=== PATIENT | male | born 1960 | race Caucasian/White ===

== ENCOUNTER → 2017-02-16 | Outpatient (CLI) | payer BC ==
[~2017-02-16] MED LIST: HYDR12.55 PO; LOSA50TA6 PO
--- NOTE | 2017-02-16 08:40 | DIAGNOSTIC IMAGING REPORT ---
KUB CLINICAL HISTORY: Nephrolithiasis. FINDINGS: 2 AP supine abdominal radiographs are compared to study dated 04/09/2016. There is a nonobstructed abdominal bowel gas pattern. A 5 mm nonobstructing calculus projects over the left kidney. No right renal calculi are clearly visualized. There is no radiographic evidence of ureteral calculus. Small metallic foreign bodies are again seen projecting over the right mid abdomen. Pelvic phleboliths are observed. The bony structures appear intact. IMPRESSION: 1. Nonobstructing left renal calculus. 2. No right renal calculi are identified. 3. Metallic foreign bodies projecting over the right mid abdomen are similar to previous. Electronically signed by: Bethel Cortes M.D. 02/16/2017 8:39 AM Dictated Date/Time: 02/16/2017 8:38 AM
== END | disposition home or self-care (01) ==
LOC: C.RAD 08:11
PROVIDERS: ATTEND Nurse Practitioner Family
DX: N20.0 Calculus of kidney (principal)

== ENCOUNTER 2019-03-30 15:07 | Observation (INO) ==
[2019-03-30] MEDS ORDERED: SODIUM CHLORIDE 0.9% 1000ML 1,000 ML IV ONE (15:26)
[2019-03-30] MEDS ORDERED: ONDANSETRON INJ 2 MG/ML 2 ML VIAL IV STA (15:26)
[2019-03-30] MEDS ORDERED: ACETAMINOPHEN 1,000 MG/100 ML VIAL IV STA (15:28)
[2019-03-30] MEDS ORDERED: PROMETHAZINE HCL 6.25 MG in SODIUM CHLORIDE 0.9% 50 ML IV STA (15:29)
[2019-03-30] MEDS: MoRPHine SULFATE 10 MG/ML CARP/VIAL IV PRN ×2 (15:38→16:15)
[2019-03-30 15:44] LABS: Hematocrit (blood only) 40.1 % (42-52); Hemoglobin 13.9 g/dL (14.0-18.0); Mean Corpuscular Hgb Conc 34.7 g/dL (32-36); Mean Corpuscular Volume 89.9 fL (80-100); Mean Platelet Volume 9.1 fL (7.4-10.4); Platelet Count 238 K/uL (130-400); RDW Standard Deviation 42.9 fL (36.4-46.3); Red Blood Count 4.46 M/uL (4.7-6.1); White Blood Count 15.97 K/uL (4.8-10.8)
[2019-03-30 16:02] LABS: Calcium 8.3 mg/dl (8.5-10.1); Creatinine Clr Calc Pharmacy 72.5 ml/min; Est GFR (African American) 76.5; Potassium 3.8 mmol/L (3.5-5.1)
[2019-03-30] MEDS ORDERED: PROMETHAZINE 6.25 MG/50.25 ML NSS IV ONE (16:06)
--- NOTE | 2019-03-30 16:26 | CT Scan Report ---
ABDOMEN AND PELVIS CT WITHOUT CONTRAST CT DOSE: 966.95 mGycm HISTORY: left flank pain, lithotrip today TECHNIQUE: Multiaxial CT images of the abdomen and pelvis were performed without contrast. A dose lo wering technique was utilized adhering to the principles of ALARA. COMPARISON STUDY: None. FINDINGS: A 5 mm subpleural nodule within the right middle lobe on image 5. Linear density within the lung bases consistent with subsegmental atelectasis. No pneumoperitoneum. No pneumatosis. Trace left pleural effusion. A few scattered hypodense lesions within the liver with the largest in the right h epatic lobe measuring 1.2 cm. These are incompletely characterized on this noncontrast study but favo r cysts. The unenhanced spleen, adrenal glands, pancreas, and gallbladder are unremarkable. There is a punctate stone within the lower pole the right kidney. No right-sided hydronephrosis. No retroperit davis lymphadenopathy. Normal caliber abdominal aorta. Moderate to large left renal subcapsular hemat sushila. This extends into the perinephric/retroperitoneal space to the level of the external iliac vesse ls. The subcapsular component measures a maximal thickness of 4 cm and results in mass effect along t he left kidney. There are a few stones within the left kidney. There are left peripelvic renal cysts. No left-sided hydronephrosis. The bladder is unremarkable. Suboptimal evaluation for bowel pathology due to the lack of intravenous and oral contrast. However, there is no definite bowel wall thickenin g or obstruction. Colonic diverticulosis. There is a metallic clip adjacent to the tip of the appendi x. The visualized appendix appears to be normal in caliber. IMPRESSION: 1. Moderate to large left renal subcapsular hematoma. This extends into the perinephric/retroperitone al space to the level of the external iliac vessels. The subcapsular component measures a maximal thi ckness of 4 cm and results in mass effect along the left kidney. Therefore, this could represent a pa ge kidney. 2. Bilateral nephrolithiasis. No hydronephrosis. 3. Trace left pleural effusion. 4. Colonic diverticulosis. 5. A 5 mm subpleural nodule within the right middle lobe. Please refer to below summary of Fleischner criteria recommendations for follow-up of incidental CT n ana Wilkins, Guidelines for management of small pulmonary nodules detected on CT scans: A sta tement from the Fleischner Society, Radiology 237: [phone].) SOLID NODULES Solitary nodule size: <6 mm * Low risk patients: no follow-up needed * high risk patients: optional CT at 12 months Solitary nodule size: 6-8 mm * Low risk patients: follow-up at 6-12 months, then consider further follow-up at 18-24 months * high risk patients: initial follow-up CT at 6-12 months and then at 18-24 months if no change Solitary nodule size: >8 mm * either low or high risk patients - consider follow-up CT at 3 months, and/or CT-PET, and/or biopsy Multiple nodules size: <6 mm * Low risk patients: no routine follow-up * high risk patients: optional CT at 12 months Multiple nodules size: 6-8 mm * Low risk patients: follow-up at 3-6 months, then consider further follow-up at 18-24 months * high risk patients: follow-up at 3-6 months, then at 18-24 months if no change Multiple nodules size: >8 mm * Low risk patients: follow-up at 3-6 months, then consider further follow-up at 18-24 months * high risk patients: follow-up at 3-6 months, then at 18-24 months if no change Note: newly detected indeterminate nodule in persons 35 years of age or older. * Low risk patients: minimal or absent history of smoking and/or other known risk factors * high risk patients: history of smoking or of other known risk factors (e.g. first degree relative with lung cancer, or exposure to asbestos, radon, uranium) * if a nodule up to 8 mm is partly solid or is ground glass further follow-up is required after 24 m onths to exclude possible slow growing adenocarcinoma (UNIQUE) SUBSOLID NODULES Solitary pure ground-glass nodule * nodule size <6 mm - no CT follow-up required * nodule size >=6 mm - follow-up CT at 6-12 months, then every 2 years until 5 years Solitary part-solid nodule * nodule size <6 mm - no CT follow-up required * nodule size >=6 mm - follow-up CT at 3-6 months. If unchanged, and solid component remains <6 mm, then annual follow-up for 5 years Multiple subsolid nodules * nodule size <6 mm - follow-up CT at 3-6 months, consider further follow-up at 2 and 4 years if sta ble * nodule size >=6 mm - follow-up CT at 3-6 months, subsequent management based on the most suspiciou s nodule(s) Electronically signed by: Philip Howard M.D. 03/30/2019 4:25 PM
--- NOTE | 2019-03-30 16:32 | XRay Report ---
XR chest 1V portable HISTORY: 58 years-old Male sob acute shortness of breath COMPARISON: CT abdomen and pelvis of same day, chest radiograph 03/19/2019 TECHNIQUE: Portable AP view of the chest FINDINGS: Previously described ill-defined opacity of the right lateral right lung base is not clearly seen on today's study. Cardiomediastinal and hilar silhouettes are unchanged. Mild interstitial coarsening. N o pneumothorax, pleural effusion or overt pulmonary bones of the chest appear grossly intact. IMPRESSION: No acute process. The above report was generated using voice recognition software. It may contain grammatical, syntax o r spelling errors. Electronically signed by: Beto Kauffman M.D. 03/30/2019 4:31 PM
--- NOTE | 2019-03-30 17:27 | History & Physical Report ---
Date of Service March 30, 2019 Assessment & Plan (1) Kidney stones: Patient underwent lithotripsy today, developed intense left flank pain CT scan in the emergency department with a left subcapsular hematoma with extension to the peritoneal space. Conservative management per urology's recommendations and sent intravenous fluids parenteral opiate medication antiemetics and serial hemoglobins. (2) Hypertension: Patient is elevated blood pressure associated with pain currently he typically takes losartan hydrochlorothiazide will continue with losartan adding hydralazine intravenous as needed for pain control (3) Lung nodule: Patient is a lung nodule seen on a CT scan of the abdomen pelvis, lung nodule program is activated (4) Seasonal allergies: Typically takes seasonal Singulair which he is on currently (5) DVT prophylaxis: SCDs for DVT prevention as chemoprophylaxis is evident History of Present Illness Primary Care Provider: Jesse Galeas DO Pain patient went to lithotripsy for recurrent nephrolithiasis. He developed intense left flank pain presented to the ED where he had a left renal subcapsular hematoma with retroperitoneal bleeding. On-call urology was consulted and recommended conservative management. Patient will have pain control IV fluids antiemetics and evaluation by urology with serial hemoglobins checked. Allergies Allergy/AdvReac Type Severity Reaction Status Date / Time methylprednisolone Allergy Severe HIVES, Verified 03/30/19 06:40 DIFFICULTY BREATHING Iodinated Contrast- Oral and Allergy Intermediate HIVES Verified 03/30/19 06:40 IV Dye tetanus toxoid, adsorbed Allergy Intermediate HIVES Verified 03/30/19 06:40 SEGUNDO Inhibitors Allergy Hives Verified 03/30/19 06:40 Gadolinium-Containing Allergy Hives Verified 03/30/19 06:40 Contrast Medi grass pollen Allergy Verified 03/30/19 06:40 Home Medications Home Medications Medication Instructions Recorded Confirmed Type montelukast 10 mg tablet 10 mg PO QPM #90 tab 02/12/19 03/30/19 Rx azelastine 137 mcg (0.1 %) nasal 2 sprays INTNAS BID #30 ml 03/16/19 03/30/19 Rx spray aerosol hydrochlorothiazide 12.5 mg tablet 12.5 mg PO QAM #90 tab 03/16/19 03/30/19 Rx losartan 100 mg tablet 100 mg PO QAM #90 tab 03/16/19 03/30/19 Rx meloxicam 15 mg tablet 15 mg PO DAILY PRN #90 tab 03/16/19 03/30/19 Rx hydrocodone-acetaminophen 1 tab PO Q6H PRN #15 tab 03/30/19 03/30/19 Rx Past Med/Surg History Medical History Hypertension Kidney stones Surgical History History of colonoscopy History of foot surgery CHILD History of tonsillectomy Hx of shoulder surgery Family History Grandmother Diabetes Social History Preferred Language: Latvian Communication Ability: Effective Pin Setter Required: No Beliefs That Will Affect Care: None Current Living Situation: Spouse Other Information That Helps Us Care for You: No Feels Safe at Home: Yes Safety Concerns: Feels Safe At This Time Smoking Status: Never smoker Second Hand Exposure: Yes ; Hx Alcohol Use: No Hx Substance Use: No Review of Systems Review of Systems: ROS: well nourished well developed. No double vision blurry vision No problems with speech or swallowing No palpitations, chest pain or pressure No Wheezing or breathing issues Left abdominal pain and back pain mild nausea no vomiting No burning urine urine frequency or changes in color or hematuria No focal joint pain or muscle pain No skin rashes or oral lesions No unusual bruising or bleeding Left CVA angle tenderness but no numbness or loss of strength No changes in memory or confusion Physical Exam Physical Exam: The patient appeared well nourished and normally developed. Vital signs as documented. Head exam is unremarkable. normocephalic, atraumatic Neck is without jugular venous distension, thyromegaly, or lymphademopathy Lungs are clear to auscultation and percussion. Cardiac exam reveals Rhythm is regular. First and second heart sounds normal. Abdominal exam reveals normal bowel sounds, no masses, no organomegaly Extremities are nonedematous and both pedal pulses are present Neurologic exam is A&Ox3, no focal deficits, strength is equal bilateral Psychologically seems neither anxious or depressed Skin is warm Dry without bruises or lesions Results & Data Vital Signs (Past 12 Hours) Vital Signs Temp Pulse Resp BP Pulse Ox 03/30/19 15:11 36.3 C L 62 18 182/[address] ABD/Pelvis 1. Moderate to large left renal subcapsular hematoma. This extends into the perinephric/retroperitoneal space to the level of the external iliac vessels. The subcapsular component measures a maximal thickness of 4 cm and results in mass effect along the left kidney. Therefore, this could represent a page kidney. 2. Bilateral nephrolithiasis. No hydronephrosis. 3. Trace left pleural effusion. 4. Colonic diverticulosis. 5. A 5 mm subpleural nodule within the right middle lobe. PG Care Time/CCT Total # of Minutes Spent Total Time Spent with Patient: Total time spent is greater than 50% in coordination of care (as documented) at patient's floor/unit and/or counseling patient:
--- NOTE | 2019-03-30 17:28 | Emergency Department Note ---
Entered by Francisco Patterson acting as a scribe for History of Present Illness General Chief complaint: Abdominal Pain Stated complaint: ABD, BACK AND SOB-POST PROCEDURE TODAY Time Seen by Provider: 03/30/19 15:23 History of Present Illness Provider complaint: left sided abdominal pain Onset (ago): hour(s) (3.5) Location: abdomen and left Radiation: abdomen Severity: severe Pain Consistency: + constant Maximum Pain Intensity: 10 Current Pain Intensity: 10 Relieved By: + none Exacerbated By: + none Associated symptoms: + loss of appetite, + nausea/vomiting and + shortness of breath The patient is a 58 year old male who presents to the Emergency Department with complaints of left sided abdominal pain. The patient had a lithotripsy procedure done this morning due to a kidney stone on the left. The pain began almost immediately after the procedure but it began to get unbearable about three hours ago. The patient took one Vicodin. The patient has been dry heaving and vomiting. The patient states he is having difficulty breathing. The patient rates his pain as a 10 out of 10 in severity. Home Medications Home Medications Medication Instructions Recorded Confirmed Type montelukast 10 mg tablet 10 mg PO QPM #90 tab 02/12/19 03/30/19 Rx azelastine 137 mcg (0.1 %) nasal 2 sprays INTNAS BID #30 ml 03/16/19 03/30/19 Rx spray aerosol hydrochlorothiazide 12.5 mg tablet 12.5 mg PO QAM #90 tab 03/16/19 03/30/19 Rx losartan 100 mg tablet 100 mg PO QAM #90 tab 03/16/19 03/30/19 Rx meloxicam 15 mg tablet 15 mg PO DAILY PRN #90 tab 03/16/19 03/30/19 Rx hydrocodone-acetaminophen 1 tab PO Q6H PRN #15 tab 03/30/19 03/30/19 Rx Allergies Allergy/AdvReac Type Severity Reaction Status Date / Time methylprednisolone Allergy Severe HIVES, Verified 03/30/19 06:40 DIFFICULTY BREATHING Iodinated Contrast- Oral and Allergy Intermediate HIVES Verified 03/30/19 06:40 IV Dye tetanus toxoid, adsorbed Allergy Intermediate HIVES Verified 03/30/19 06:40 SEGUNDO Inhibitors Allergy Hives Verified 03/30/19 06:40 Gadolinium-Containing Allergy Hives Verified 03/30/19 06:40 Contrast Medi grass pollen Allergy Verified 03/30/19 06:40 Past Med/Surg History Medical History Hypertension Kidney stones Surgical History History of colonoscopy History of foot surgery CHILD History of tonsillectomy Hx of shoulder surgery Family History Grandmother Diabetes Social History Preferred Language: Wolof Communication Ability: Effective Hopper Feeder Required: No Beliefs That Will Affect Care: None Current Living Situation: Spouse Other Information That Helps Us Care for You: No Feels Safe at Home: Yes Safety Concerns: Feels Safe At This Time Smoking Status: Never smoker Second Hand Exposure: Yes ; Hx Alcohol Use: No Hx Substance Use: No Review of Systems See HPI for pertinent positives & negatives. and A total of 10 systems reviewed and were otherwise negative Physical Exam Vital Signs Vital Signs - 24 hr 03/30/19 15:11 03/30/19 16:22 03/30/19 16:30 Temperature 36.3 C L Temperature Source Oral Sepsis Recent Fever Within 48 Hours No Sepsis Action Taken by Nursing No Action Required Pulse Rate 62 54 L 54 L Respiratory Rate 18 18 17 Respiratory Effort / Characteristics Non-Labored Respiratory Depth Normal Blood Pressure 182/96 H 172/92 H 184/94 H Blood Pressure Mean 124 118 124 Blood Pressure Position Sitting Pulse Oximetry 97 96 93 Oxygen Delivery Method Room Air Room Air Room Air 03/30/19 16:43 03/30/19 17:00 03/30/19 17:30 Temperature Temperature Source Sepsis Recent Fever Within 48 Hours Sepsis Action Taken by Nursing Pulse Rate 54 L 54 L Respiratory Rate 22 18 Respiratory Effort / Characteristics Respiratory Depth Blood Pressure 166/97 H 177/93 H Blood Pressure Mean 120 121 Blood Pressure Position Pulse Oximetry 96 94 Oxygen Delivery Method Room Air Room Air Room Air GENERAL: Patient is in moderate distress from pain, dry heaving. HEENT: No acute trauma, normocephalic atraumatic, mucous membranes moist, no nasal congestion, no scleral icterus. NECK: No stridor, no adenopathy, no meningismus, trachea is midline. LUNGS: Clear to auscultation bilaterally, no wheeze, no rhonchi, breath sounds equal. HEART: Without murmurs gallops or rubs, regular rate and rhythm. ABDOMEN: Soft, moderate tenderness to the left abdomen both upper and lower quadrants, bowel sounds positive, no hernias, no peritonitis. EXTREMITIES: No cyanosis or edema, full range of motion of all the joints without pain or difficulty, no signs for acute trauma. NEUROLOGIC: Oriented x 3, no acute motor or sensory deficits, no focal weakness. SKIN: No rash, no jaundice, no diaphoresis, pale Course 1523: Past medical records reviewed. The patient was evaluated in room A12B. A complete history and physical examination was performed. 1615: I spoke with radiology about the patient, he has a renal hematoma. 1630: I spoke with Dr. Ugalde, [facility] Urology, who states there is no need for emergent intervention and the patient should be monitored. 1645: I spoke with Dr. Patel, [facility] Hospitalist, about the patients case and he agreed to accept the patient for further evaluation. Consultations Consultation #1: I spoke with Dr. Ugalde, [facility] Urology, who states there is no need for emergent intervention and the patient should be monitored. Time: 16:30 Consultation #2: I spoke with Dr. Patel, [facility] Hospitalist, about the patients case and he agreed to accept the patient for further evaluation. Time: 16:45 Administered Medications Discontinued Medications Acetaminophen (Ofirmev) 1,000 mg in 100 mls @ 400 mls/hr IV NOW STA Stop: 03/30/19 15:42 Last Infusion: 03/30/19 15:59 Dose: 0 mls/hr Documented by: [id number] Admin: 03/30/19 15:41 Dose: 400 mls/hr Documented by: [id number] Promethazine HCl 6.25 mg/ (Sodium Chloride) 50.25 mls @ 201 mls/hr IV NOW STA Stop: 03/30/19 15:43 Last Infusion: 03/30/19 16:35 Dose: 0 mls/hr Documented by: [id number] Admin: 03/30/19 16:19 Dose: 201 mls/hr Documented by: [id number] Sodium Chloride (Nss 1000ml) 1,000 mls @ 999 mls/hr IV .Q1H1M ONE Stop: 03/30/19 16:26 Last Infusion: 03/30/19 17:02 Dose: 0 mls/hr Documented by: [id number] Admin: 03/30/19 15:38 Dose: 999 mls/hr Documented by: [id number] Morphine Sulfate (Morphine Sulfate) 6 mg IV Q10M PRN PRN Reason: Pain Last Admin: 03/30/19 16:15 Dose: 6 mg Documented by: [id number] Admin: 03/30/19 15:38 Dose: 6 mg Documented by: [id number] Morphine Sulfate (Morphine Sulfate) Confirm Administered Dose 4 mg .ROUTE .STK- MED ONE Stop: 03/30/19 17:57 Last Admin: 03/30/19 17:58 Dose: 4 mg Documented by: [id number] Ondansetron HCl (Zofran) 4 mg IV NOW STA Stop: 03/30/19 15:27 Last Admin: 03/30/19 15:38 Dose: 4 mg Documented by: [id number] Promethazine HCl (Phenergan) Confirm Administered Dose 6.25 mg IV .STK-MED ONE Stop: 03/30/19 16:07 Last Admin: 03/30/19 16:16 Dose: 6.25 mg Documented by: [id number] Medical Decision Making Differential Diagnosis Differential Diagnosis: renal hematoma, renal colic, renal failure, hydronephrosis, dehydration, splenic injury, UTI Medical Records Attestation: I reviewed the patient's medical records. Home Medications Current Medication List: was personally reviewed by me Laboratory Data Attestation: I reviewed the patient's lab results. Result diagrams: 03/30/19 15:29 03/30/19 15:29 Lab Results 03/30/19 03/30/19 Range/Units 15:29 15:29 WBC 15.97 H (4.8-10.8) K/uL RBC 4.46 L (4.7-6.1) M/uL Hgb 13.9 L (14.0-18.0) g/dL Hct 40.1 L (42-52) % MCV 89.9 (80-100) fL MCH 31.2 (25-34) pg MCHC 34.7 (32-36) g/dL RDW Std Deviation 42.9 (36.4-46.3) fL RDW Coeff of Karen 13.0 (11.5-14.5) % Plt Count 238 (130-400) K/uL MPV 9.1 (7.4-10.4) fL Sodium 137 (136-145) mmol/L Potassium 3.8 (3.5-5.1) mmol/L Chloride 103 (98-107) mmol/L Carbon Dioxide 27 (21-32) mmol/L Anion Gap 7.0 (3-11) BUN 15 (7-18) mg/dl Creatinine 1.19 (0.6-1.4) mg/dl Est Cr Clr Drug Dosing 72.5 ml/min Est GFR ( Amer) 76.5 Est GFR (Non-Af Amer) 66.0 BUN/Creatinine Ratio 13.0 (10-20) Glucose 123 H (70-99) mg/dl Calcium 8.3 L (8.5-10.1) mg/dl Imaging Data Radiologist's Impression: Radiology results as stated below per my review and radiologist interpretation: ABDOMEN AND PELVIS CT WITHOUT CONTRAST CT DOSE: 966.95 mGycm HISTORY: left flank pain, lithotrip today TECHNIQUE: Multiaxial CT images of the abdomen and pelvis were performed without contrast. A dose lowering technique was utilized adhering to the principles of ALARA. COMPARISON STUDY: None. FINDINGS: A 5 mm subpleural nodule within the right middle lobe on image 5. Linear density within the lung bases consistent with subsegmental atelectasis. No pneumoperitoneum. No pneumatosis. Trace left pleural effusion. A few scattered hypodense lesions within the liver with the largest in the right hepatic lobe measuring 1.2 cm. These are incompletely characterized on this noncontrast study but favor cysts. The unenhanced spleen, adrenal glands, pancreas, and gallbladder are unremarkable. There is a punctate stone within the lower pole the right kidney. No right-sided hydronephrosis. No retroperitoneal lymphadenopathy. Normal caliber abdominal aorta. Moderate to large left renal subcapsular hematoma. This extends into the perinephric/retroperitoneal space to the level of the external iliac vessels. The subcapsular component measures a maximal thickness of 4 cm and results in mass effect along the left kidney. There are a few stones within the left kidney. There are left peripelvic renal cysts. No left-sided hydronephrosis. The bladder is unremarkable. Suboptimal evaluation for bowel pathology due to the lack of intravenous and oral contrast. However, there is no definite bowel wall thickening or obstruction. Colonic diverticulosis. There is a metallic clip adjacent to the tip of the appendix. The visualized appendix appears to be normal in caliber. IMPRESSION: 1. Moderate to large left renal subcapsular hematoma. This extends into the perinephric/retroperitoneal space to the level of the external iliac vessels. The subcapsular component measures a maximal thickness of 4 cm and results in mass effect along the left kidney. Therefore, this could represent a page kidney. 2. Bilateral nephrolithiasis. No hydronephrosis. 3. Trace left pleural effusion. 4. Colonic diverticulosis. 5. A 5 mm subpleural nodule within the right middle lobe. Please refer to below summary of Fleischner criteria recommendations for follow- up of incidental CT nodules (Daniel Wilkins, Guidelines for management of small pulmonary nodules detected on CT scans: A statement from the Fleischner Society, Radiology 237: [phone].) SOLID NODULES Solitary nodule size: <6 mm * Low risk patients: no follow-up needed * high risk patients: optional CT at 12 months Solitary nodule size: 6-8 mm * Low risk patients: follow-up at 6-12 months, then consider further follow-up at 18-24 months * high risk patients: initial follow-up CT at 6-12 months and then at 18-24 months if no change Solitary nodule size: >8 mm * either low or high risk patients - consider follow-up CT at 3 months, and/or CT-PET, and/or biopsy Multiple nodules size: <6 mm * Low risk patients: no routine follow-up * high risk patients: optional CT at 12 months Multiple nodules size: 6-8 mm * Low risk patients: follow-up at 3-6 months, then consider further follow-up at 18-24 months * high risk patients: follow-up at 3-6 months, then at 18-24 months if no change Multiple nodules size: >8 mm * Low risk patients: follow-up at 3-6 months, then consider further follow-up at 18-24 months * high risk patients: follow-up at 3-6 months, then at 18-24 months if no change Note: newly detected indeterminate nodule in persons 35 years of age or older. * Low risk patients: minimal or absent history of smoking and/or other known risk factors * high risk patients: history of smoking or of other known risk factors (e.g. first degree relative with lung cancer, or exposure to asbestos, radon, uranium) * if a nodule up to 8 mm is partly solid or is ground glass further follow-up is required after 24 months to exclude possible slow growing adenocarcinoma (UNIQUE) SUBSOLID NODULES Solitary pure ground-glass nodule * nodule size <6 mm - no CT follow-up required * nodule size >=6 mm - follow-up CT at 6-12 months, then every 2 years until 5 years Solitary part-solid nodule * nodule size <6 mm - no CT follow-up required * nodule size >=6 mm - follow-up CT at 3-6 months. If unchanged, and solid component remains <6 mm, then annual follow-up for 5 years Multiple subsolid nodules * nodule size <6 mm - follow-up CT at 3-6 months, consider further follow-up at 2 and 4 years if stable * nodule size >=6 mm - follow-up CT at 3-6 months, subsequent management based on the most suspicious nodule(s) Electronically signed by: Philip Howard M.D. 03/30/2019 4:25 PM XR chest 1V portable HISTORY: 58 years-old Male sob acute shortness of breath COMPARISON: CT abdomen and pelvis of same day, chest radiograph 03/19/2019 TECHNIQUE: Portable AP view of the chest FINDINGS: Previously described ill-defined opacity of the right lateral right lung base is not clearly seen on today's study. Cardiomediastinal and hilar silhouettes are unchanged. Mild interstitial coarsening. No pneumothorax, pleural effusion or overt pulmonary bones of the chest appear grossly intact. IMPRESSION: No acute process. The above report was generated using voice recognition software. It may contain grammatical, syntax or spelling errors. Electronically signed by: Beto Kauffman M.D. 03/30/2019 4:31 PM Blood Pressure Blood Pressure Findings: Elevated blood pressure Blood Pressure Disposition: further management by hospitalist [facility] Narrative There is a moderate leukocytosis, this would be consistent with infection or his pain. A mild anemia was noted. No significant electrolyte abnormality or kidney failure. Chest film did not show pneumonia or free air. Abdominal and pelvis CT shows a left renal hematoma. There was no hydronephrosis. On exam, the patient was pale and seemed quite uncomfortable. He had some dry heaves. The patient received IV saline, he was given IV Phenergan, IV Zofran, IV morphine and IV Tylenol. He does feel improved. I discussed the findings on CT with urology. The patient does not require transfer or emergent urologic intervention. Pain control, time and observation are required. I did speak with the patient, I talked to case management. The on-call hospitalist was consulted. Impression & Plan Renal hematoma, left, Left flank pain, Hx of lithotripsy Discharge Plan Visit Data *Final* Discharge Date/Time: 03/30/19 18:26 Chief Complaint: Abdominal Pain Stated Complaint: ABD, BACK AND SOB-POST PROCEDURE TODAY ED Provider: Bethel Thacker Discharge Problem: Renal hematoma, left, Left flank pain, Hx of lithotripsy Patient Disposition: Admitted As Inpatient Discharge Instructions Interventions: ED Discharge Assessment Last Done: 03/30/19 18:26 Discharge Problem: Renal hematoma, left Qualifiers: Encounter type: initial encounter Qualified Code(s): S37.012A - Minor contusion of left kidney, initial encounter The scribe's documentation has been prepared under my direction and personally reviewed by me in its entirety. I confirm that the note above accurately reflects all work, treatment, procedures, and medical decision making performed by me.
[2019-03-30] MEDS ORDERED: MoRPHine SULFATE 4 MG/ML 1 ML CARP\\VIAL ONE (17:56)
[2019-03-30] MEDS ORDERED: ONDANSETRON INJ 2 MG/ML 2 ML VIAL IV PRN (19:07)
[2019-03-30] MEDS ORDERED: MoRPHine SULFATE 4 MG/ML 1 ML CARP\\VIAL IV PRN (19:07)
[2019-03-30] MEDS ORDERED: MoRPHine SULFATE 10 MG/ML CARP/VIAL IV PRN (19:07)
[2019-03-30] MEDS ORDERED: POLYETHYLENE (MIRALAX) 17 GM PACK PO PRN (19:07)
[2019-03-30] MEDS ORDERED: HydrALAZINE HCL 20 MG/ML VIAL IV PRN (19:07)
[2019-03-30] MEDS ORDERED: LORazepam 0.5 MG/1 ML VIAL IV PRN (19:07)
[2019-03-30] MEDS ORDERED: MoRPHine SULFATE 2 MG/ML CARP IV PRN (19:07)
[2019-03-30] MEDS ORDERED: ALUMINUM/MAGNESIUM SUSP 30 ML UDC PO PRN (19:07)
[2019-03-30] MEDS ORDERED: OXYCODONE HCL IR 5 MG TAB (IMMEDIATE RELEASE) PO PRN (19:07)
[2019-03-30] MEDS: ACETAMINOPHEN 500 MG TAB PO SCH (20:37)
[2019-03-30] MEDS ORDERED: MONTELUKAST SODIUM 10 MG TABLET PO SCH (21:00)
[2019-03-30 22:52] LABS: Appearance Urine Clear (Clear); Bacteria Urine Automated Negative (Negative); Bilirubin Urine Negative (Negative); Blood Urine 3+ (Negative); Color Urine Yellow; Epithelial Cell Urine Auto 0-5 /lpf (0-5); Glucose Urine UA Negative (Negative); Ketones Urine Negative (Negative); Leukocyte Esterase Urine Negative (Negative); Nitrite Urine Negative (Negative); Protein Urine Negative (Negative); Specific Gravity Urine 1.011 (1.000-1.030); Urobilinogen Urine Negative (Negative); pH Urine 5.5 (4.5-7.5)
[2019-03-30] MEDS: AZELASTINE: ORDER AWAITING ACTION SCH (23:00)
[2019-03-31] MEDS: ACETAMINOPHEN 500 MG TAB PO SCH ×2 (05:37→13:59)
[2019-03-31 07:13] LABS: Hematocrit (blood only) 32.9 % (42-52); Hemoglobin 11.1 g/dL (14.0-18.0); Mean Corpuscular Hgb Conc 33.7 g/dL (32-36); Mean Corpuscular Volume 91.9 fL (80-100); Mean Platelet Volume 9.1 fL (7.4-10.4); Platelet Count 210 K/uL (130-400); RDW Coefficient of Variation 13.3 % (11.5-14.5); RDW Standard Deviation 44.3 fL (36.4-46.3); Red Blood Count 3.58 M/uL (4.7-6.1); White Blood Count 10.85 K/uL (4.8-10.8)
[2019-03-31 07:48] LABS: BUN Creatinine Ratio 10.6 (10-20); Calcium 7.8 mg/dl (8.5-10.1); Creatinine Clr Calc Pharmacy 71.9 ml/min; Est GFR (African American) 75.7; Est GFR (Non-African American) 65.3; Potassium 3.8 mmol/L (3.5-5.1)
--- NOTE | 2019-03-31 08:33 | Urology Consultation ---
Date of Consultation March 31, 2019 Assessment & Plan (1) Renal hematoma, left: post ESWL bleeding (subcapsular and perinephric) - hemodynamically stable - Cr stable - htn improved - hgb decreasing, but not significant enough to justify transfusion, etc today - check one additional H and H at noon - no embolization required at this stage - discussed findings with the patient, expressed understanding of the current situation - if relative stability from a Hgb standpoint, can be d/c'ed home after lunch History of Present Illness Attending Physician: Emilee Orlando MD History of Present Illness s/p L ESWL yesterday for small renal stone - developed pain shortly after arriving home - returned to the ER - subcapsular hematoma and perinephric hematoma noted - hypertensive on arrival, improved throughout the night - cr essentially stable - HgB drift as would be expected based on imaging - pain present, but improving - much, much better than yesterday - anxious to go home Allergies Allergy/AdvReac Type Severity Reaction Status Date / Time methylprednisolone Allergy Severe HIVES, Verified 03/30/19 06:40 DIFFICULTY BREATHING Iodinated Contrast- Oral and Allergy Intermediate HIVES Verified 03/30/19 06:40 IV Dye tetanus toxoid, adsorbed Allergy Intermediate HIVES Verified 03/30/19 06:40 SEGUNDO Inhibitors Allergy Hives Verified 03/30/19 06:40 Gadolinium-Containing Allergy Hives Verified 03/30/19 06:40 Contrast Medi grass pollen Allergy Verified 03/30/19 06:40 Home Medications Home Medications Medication Instructions Recorded Confirmed Type montelukast 10 mg tablet 10 mg PO QPM #90 tab 02/12/19 03/30/19 Rx azelastine 137 mcg (0.1 %) nasal 2 sprays INTNAS BID #30 ml 03/16/19 03/30/19 Rx spray aerosol hydrochlorothiazide 12.5 mg tablet 12.5 mg PO QAM #90 tab 03/16/19 03/30/19 Rx losartan 100 mg tablet 100 mg PO QAM #90 tab 03/16/19 03/30/19 Rx meloxicam 15 mg tablet 15 mg PO DAILY PRN #90 tab 03/16/19 03/30/19 Rx hydrocodone-acetaminophen 1 tab PO Q6H PRN #15 tab 03/30/19 03/30/19 Rx Patient History Medical History Hypertension Kidney stones Surgical History History of colonoscopy History of foot surgery CHILD History of tonsillectomy Hx of shoulder surgery Family History Grandmother Diabetes Social History Preferred Language: Palauan Communication Ability: Effective Quantitative Manager Required: No Beliefs That Will Affect Care: None Current Living Situation: Spouse Other Information That Helps Us Care for You: No Feels Safe at Home: Yes Safety Concerns: Feels Safe At This Time Smoking Status: Never smoker Second Hand Exposure: Yes ; Hx Alcohol Use: No Hx Substance Use: No Review of Systems Constitutional: no fever, no chills and no fatigue Eyes: no worsening vision Ear, Nose, Mouth, Throat: no facial pain and no pain with swallowing Respiratory: no cough and no dyspnea Cardiovascular: no chest pain and no palpitations Gastrointestinal: + abdominal pain; no nausea and no vomiting Genitourinary: + flank pain Musculoskeletal: + back pain Integumentary: no rash and no urticaria Neurologic: no gait abnormality and no unsteadiness Psychiatric: no behavioral changes and no depression Endocrine: no fatigue Physical Exam Constitutional: well developed and well nourished Neck: neck nontender Respiratory: normal respiratory effort; no respiratory distress and does not use accessory muscles Cardiovascular: Rate/Rhythm: regular rate Vessels: radial pulses present Extremities: no edema Gastrointestinal (Abdomen): Inspection/Auscultation: abdomen normal to inspection Percussion/Palpation: + abdomen tender (CVA tenderness extending towards the pelvis) and abdomen soft; no guarding Musculoskeletal: Head/Neck/Chest: normocephalic and head atraumatic Extremities: extremities normal to inspection Skin: no rashes and no lesions Trauma: no evidence of skin trauma Neurologic: awake; not obtunded Speech / Cognition: normal speech Motor/Sensory: no tremor Psychiatric: Orientation: alert and oriented x 3 Genitourinary: no CVA tenderness (minimal discomfort to palpation today) Lymphatic: no lymphadenopathy Results & Data Vital Signs (Past 12 Hours) Vital Signs Temp Pulse Resp BP Pulse Ox 03/31/19 07:32 37.0 C 70 16 141/80 H 95 03/31/19 03:18 36.9 C 70 16 138/73 95 03/30/19 22:56 37.1 C 75 16 138/81 96 PG Care Time/CCT Total # of Minutes Spent Total Time Spent with Patient: Total time spent is greater than 50% in coordination of care (as documented) at patient's floor/unit and/or counseling patient: (1) Renal hematoma, left Encounter type: initial encounter Qualified Code(s): S37.012A - Minor contusion of left kidney, initial encounter
[2019-03-31] MEDS ORDERED: LOSARTAN POTASSIUM 50 MG TAB PO SCH (09:00)
[2019-03-31] MEDS: AZELASTINE: ORDER AWAITING ACTION SCH (09:03)
--- NOTE | 2019-03-31 13:21 | Discharge Summary ---
Date of Service March 31, 2019 Admission HPI Per Admitting Provider Pain patient went to lithotripsy for recurrent nephrolithiasis. He developed intense left flank pain presented to the ED where he had a left renal subcapsular hematoma with retroperitoneal bleeding. On-call urology was consulted and recommended conservative management. Patient will have pain control IV fluids antiemetics and evaluation by urology with serial hemoglobins checked. Admission Exam Per Admitting Provider The patient appeared well nourished and normally developed. Vital signs as documented. Head exam is unremarkable. normocephalic, atraumatic Neck is without jugular venous distension, thyromegaly, or lymphademopathy Lungs are clear to auscultation and percussion. Cardiac exam reveals Rhythm is regular. First and second heart sounds normal. Abdominal exam reveals normal bowel sounds, no masses, no organomegaly Extremities are nonedematous and both pedal pulses are present Neurologic exam is A&Ox3, no focal deficits, strength is equal bilateral Psychologically seems neither anxious or depressed Skin is warm Dry without bruises or lesions Principal Diagnosis Left Renal Hematoma Discharge Exam General: Resting comfortably HEENT: NC/AT; PERRLA with EOMI; [place] conjunctiva, MMM. No erythema of posterior pharynx Neck: Supple and nontender Cardiac: RRR Lungs: CTA bilaterally Abdomen: Bowel normoactive X 4; TTP over left abd. Extremities: Warm. No edema present Neuro: No focal weakness Skin: No rash Discharge Data Allergies Allergy/AdvReac Type Severity Reaction Status Date / Time methylprednisolone Allergy Severe HIVES, Verified 04/02/19 09:24 DIFFICULTY BREATHING Iodinated Contrast- Oral and Allergy Intermediate HIVES Verified 04/02/19 09:24 IV Dye tetanus toxoid, adsorbed Allergy Intermediate HIVES Verified 04/02/19 09:24 SEGUNDO Inhibitors Allergy Hives Verified 04/02/19 09:24 Gadolinium-Containing Allergy Hives Verified 04/02/19 09:24 Contrast Medi grass pollen Allergy Verified 04/02/19 09:24 Consultations 03/30/19 16:36 ED Decision to Admit Stat 03/30/19 17:48 Consult Lung Nodule Program Routine 03/30/19 19:07 Consult Urology Routine Ordered Studies 03/30/19 15:28 CT abd pelvis wo con Stat KUB and CXR Hospital Course (1) Kidney stones: S/p lithotripsy on 03/30/19; developed left flank pain post op. CT scan with left subcapsular hematoma with extension into peritoneal space. Urology consulted, appreciate input. H/H trended down in setting of acute bleed but did not fall below transfusion level. No further outpatient labs per urology. Stable for discharge to home on 03/31/19. Will need to follow up with urology as outpatient in 1-2 weeks. (2) Hypertension: Continued home Losartan as prescribed. Held home HCTZ, resume at discharge. (3) Atherosclerotic heart disease of [place] coronary artery with other forms of angina pectoris: Not currently on statin therapy. No evidence of acute coronary syndrome during this admission. (4) Lung nodule: Lung nodule program consult. (5) Seasonal allergies: Continued Singulair. (6) DVT prophylaxis: SCDs; held pharmacologic ppx in setting of acute bleed. Discharged to home on 03/31/19. Total Time Total Time Spent Total Time Spent (In Minutes): >30 minutes Total Time Includes: Examination of the Patient, Discharge Planning, Medication Reconciliation, Communication With Other Providers and Other Discharge Plan Discharge Items Patient Disposition: Home - Self-Care Reason For Visit: LEFT RENAL SUBCAPSULAR HEMATOMA Discharge Diagnosis: Left Renal Subcapsular Hematoma Condition: Good Discharge Goals: Decrease discomfort, Improve disease control, Improve function, Increase independence, Improve nutritional status and Prevent disease Activity: As commented below Exercise/Sports: Gradually increase as tolerated and Wait until after follow-up appointment Non-emergency contact: Primary Care Provider and Urologist Call non-emergency contact if: you have any medication questions, your symptoms worsen, your pain is not controlled, your pain is worsening, your pain is unusual for you, your pain is concerning for you and you have a fever Follow-up/Referrals: Emil Ugalde MD [Physician] - (Please call for follow up appo intment.) Jesse Galeas DO [Primary Care Provider] - Diet: Regular Addtl Provider Instructions: 1. Kidney Stones with Lithotripsy leading to hematoma * Continue Tylenol 650 mg every 8 hours for mild to moderate pain. * Please call urology or go to the ER if you develop recurrent severe left flank or abdominal pain, fever/chills, nausea or vomiting. * You will need to follow up with urology in 1-[address] of Abd/Pelvis and re-evaluation. Prescriptions: New acetaminophen [Tylenol] 325 mg capsule 650 mg PO Q6H PRN (Reason: fever or pain) Qty: 1 RF: 0 Continued azelastine 137 mcg (0.1 %) aerosol,spray 2 sprays INTNAS BID Qty: 30 RF: 3 hydrochlorothiazide 12.5 mg tablet 12.5 mg PO QAM Qty: 90 RF: 3 losartan 100 mg tablet 100 mg PO QAM Qty: 90 RF: 3 montelukast 10 mg tablet 10 mg PO QPM Qty: 90 RF: 3 Discontinued meloxicam [Mobic] 15 mg tablet 15 mg PO DAILY PRN (Reason: Pain) Qty: 90 RF: 0 Visit Report Forms: Smoking Cessation Stand-Alone Forms: Call Back Authorization, [facility], Opioid Pain Management, Work/School Release (Inpt) Krames/Other Patient Handouts: Healthy Kidneys, Kidney Health Monitor Discharge Orders: Discharge Order (Routine); Ordered 03/31/19 Ordered By: Emilee Orlando Admission Data Admit Date/Time: 03/30/19 17:31 Attending Provider: Emilee Orlando Admit Provider: Duglas Patel Primary Care Provider: Jesse Galeas Other Providers: Emil Ugalde Service: Medical Other Interventions: Discharge Summary Assessment (RN) Last Done: 03/31/19 15:17 Pending Studies at Discharge: No DC Date/Time DO NOT enter until pt leaves facility: 03/31/19 15:36 Supervising Physician Co-Signing Physician Notes PA Supervision Note: I personally saw and examined the patient. I verified all [place] points and agree with MIKE Leal with the following exceptions and/or additions: Pt was much improve don day of dc. Said he had no pain. Was afebrile. Is urinating. VSS RRR no mgr CTAN no wcr Abd +BS soft mild TTP LLQ without guarding or rebound, +L CVA tenderness Ext no edema Stable for dc to home as per Urology recommendations, close f/u with Urol
[2019-03-31 14:07] LABS: Hematocrit (blood only) 31.1 % (42-52); Hemoglobin 10.6 g/dL (14.0-18.0)
== END 2019-03-31 15:36 | disposition home or self-care (01) ==
LOC: ED 15:07 → 3N 15:07 → SUATTDRO 17:31 → 3N 18:26
DX: Z88.8 Allergy status to other drugs, medicaments and biological substances; R91.1 Solitary pulmonary nodule; I10 Essential (primary) hypertension; Z88.7 Allergy status to serum and vaccine; N99.840 Postprocedural hematoma of a genitourinary system organ or structure following a genitourinary system procedure; I25.10 Atherosclerotic heart disease of native coronary artery without angina pectoris; Z91.041 Radiographic dye allergy status; Z79.899 Other long term (current) drug therapy

== ENCOUNTER 2019-04-02 08:18 | Inpatient (IN) ==
[2019-04-02] MEDS ORDERED: ONDANSETRON INJ 2 MG/ML 2 ML VIAL IV STA (08:56)
[2019-04-02] MEDS ORDERED: fentaNYL citrate 100 MCG/2 ML VIAL IV PRN (08:56)
[2019-04-02 09:08] LABS: Basophils # (auto) 0.01 K/uL (0-0.2); Basophils % (auto) 0.1 %; Eosinophils # (auto) 0.12 K/uL (0-0.5); Eosinophils % (auto) 0.9 %; Hematocrit (blood only) 33.4 % (42-52); Hemoglobin 11.5 g/dL (14.0-18.0); Immature Granulocytes # (auto) 0.02 K/uL (0.00-0.02); Immature Granulocytes % (auto) 0.2 %; Lymphocytes # (auto) 1.53 K/uL (1.2-3.4); Lymphocytes % (auto) 11.8 %; Mean Corpuscular Hgb Conc 34.4 g/dL (32-36); Mean Corpuscular Volume 92.3 fL (80-100); Mean Platelet Volume 8.9 fL (7.4-10.4); Monocytes # (auto) 1.09 K/uL (0.11-0.59); Monocytes % (auto) 8.4 %; Neutrophils # (auto) 10.18 K/uL (1.4-6.5); Neutrophils % (auto) 78.6 %; Platelet Count 240 K/uL (130-400); RDW Coefficient of Variation 13.1 % (11.5-14.5); RDW Standard Deviation 44.7 fL (36.4-46.3); Red Blood Count 3.62 M/uL (4.7-6.1); White Blood Count 12.95 K/uL (4.8-10.8)
[2019-04-02 09:09] LABS: Appearance Urine Clear (Clear); Bilirubin Urine Negative (Negative); Blood Urine 3+ (Negative); Color Urine Yellow; Glucose Urine UA Negative (Negative); Ketones Urine Trace (Negative); Leukocyte Esterase Urine Negative (Negative); Nitrite Urine Negative (Negative); Protein Urine Negative (Negative); Urobilinogen Urine Negative (Negative); pH Urine 5.5 (4.5-7.5)
[2019-04-02 09:14] LABS: Albumin Level 3.6 gm/dl (3.4-5.0); Calcium 8.8 mg/dl (8.5-10.1); Creatinine Clr Calc Pharmacy 82.6 ml/min; Est GFR (Non-African American) 75.9; Potassium 3.6 mmol/L (3.5-5.1)
[2019-04-02 09:17] LABS: Bilirubin,Total 0.6 mg/dl (0.2-1); Globulin 3.8 gm/dl (2.5-4.0); Total Protein 7.4 gm/dl (6.4-8.2)
[2019-04-02 09:22] LABS: Epithelial Cell Urine 0-5 /lpf (0-5); WBC Urine 0-5 /hpf (0-5)
[2019-04-02 09:23] LABS: Bacteria Urine Negative (Negative); Calcium Oxalate Crystals Urine Present (None Prsent)
[2019-04-02] MEDS ORDERED: DiphenhydrAMINE HCL 50 MG/ML VIAL IV STA (09:29)
[2019-04-02] MEDS ORDERED: DEXAMETHASONE **PF** INJ 10 MG/ML VIAL IV ONE (09:30)
--- NOTE | 2019-04-02 10:08 | CT Scan Report ---
CT OF THE ABDOMEN AND PELVIS WITHOUT CONTRAST CLINICAL HISTORY: ESWL, L renal hematoma, contrast allergy COMPARISON STUDY: CT of the abdomen and pelvis March 30, 2019. TECHNIQUE: Axial images of the abdomen and pelvis were obtained without IV contrast. Images were revi ewed in the axial, sagittal, and coronal planes. Automated exposure control was utilized for the dayna dy. A dose lowering technique was utilized adhering to the principles of ALARA. FINDINGS: Within visualized portions of the lower lungs, note is made of a 5 mm subpleural right midd le lobe nodule on image 15 of 491 and a 5 mm right lower lobe nodule on image 20. A small left pleura l effusion with left lower lobe atelectasis has slightly increased. The hyperdense left subcapsular hematoma has slightly decreased in size since CT of March 30, 2019. H ematoma measures approximately 8.3 x 4.4 cm. It previously measured 8.4 x 4.7 cm. Mass effect on the kidney is again noted. Perinephric hemorrhage has slightly decreased. Hemorrhage extending into the p lashon has slightly increased. This is extraperitoneal in location. Several small left renal calculi f ragments measure up to 3 mm. Several fragment within the distal left ureter are now noted, largest of which is a 4 mm fragment at the ureterovesical vesicle junction. Mild left hydroureteronephrosis is noted. A 3 mm right renal calculus is noted. Evaluation of the remainder of the abdomen and pelvis is suboptimal on this unenhanced exam. The adrenal glands, spleen and kidneys are unremarkable. Water a ttenuation right hepatic lobe lesion favors a cyst but is suboptimally assessed on this study. No berenice dence for a bowel obstruction. No suspicious osseous lesions are noted. IMPRESSION: 1. Moderate size left subcapsular hematoma, slightly decreased in size since CT of March 30, 2019. Pe rsistent mass effect on the left kidney. Interval decrease in perinephric hemorrhage with slight incr ease in pelvic extension of hemorrhage. 2. Multiple distal left renal calculi/fragments, including a 4 mm ureterovesical junction calculi. Mi ld left hydroureteronephrosis. 2. 3 mm right renal calculus. 4. A few low suspicion but indeterminate right lung nodules. A chest CT in 6 months to ensure stabili ty is recommended. Electronically signed by: Oscar Oro M.D. 04/02/2019 10:07 AM
[2019-04-02] MEDS ORDERED: SODIUM CHLORIDE 0.9% 1000ML 1,000 ML IV ONE (10:20)
[2019-04-02] MEDS ORDERED: PIPERACILLIN/TAZOBACTAM 4.5 GM/120 ML BAG IV ONE (11:09)
[2019-04-02] MEDS ORDERED: PIPERACILL/TAZOBAC CONSULT ACTIVE PRN (11:09)
--- NOTE | 2019-04-02 12:37 | Emergency Department Note ---
Entered by Citlali Mckeon acting as a scribe for History of Present Illness General Chief complaint: Abdominal Pain Stated complaint: ABDOMINAL PAIN,FEVER Time Seen by Provider: 04/02/19 08:44 Source: patient History of Present Illness Provider complaint: Abdominal pain Onset (ago): day(s) 3 Location: abdomen Radiation: back Pain Consistency: + constant Maximum Pain Intensity: 7 Quality: + constant Associated symptoms: + fever/chills (fever), + nausea/vomiting (nausea) and + other (Positive: abdominal pain, back pain, not been able to sleep, urine is more yellow, dysuria, dry mouth. Negative: dizziness, vomiting ) The patient is a 58 year old male who presents to the ED with complaints of constant left abdominal pain that started 3 days ago. The patient reports his pain radiates to his back. He notes he had a lithotripsy on Tuesday with Dr. Luz Maria streeter. The patient states I had a bleeder, was admitted to the hospital due to his pain, and was discharged home after it improved. Upon review of records, it appears that the patient had a large left renal hematoma post ESWL. He reports he has not been able to sleep since Tuesday. The patient notes he is nauseated and his mouth is dry. He states he has dysuria and his urine is more yellow than normal, but denies gross blood. The patient notes he has a fever of 100.1 degrees. The patient denies dizziness or vomiting. Home Medications Home Medications Medication Instructions Recorded Confirmed Type montelukast 10 mg tablet 10 mg PO QPM #90 tab 02/12/19 04/02/19 Rx azelastine 137 mcg (0.1 %) nasal 2 sprays INTNAS BID #30 ml 03/16/19 04/02/19 Rx spray aerosol hydrochlorothiazide 12.5 mg tablet 12.5 mg PO QAM #90 tab 03/16/19 04/02/19 Rx losartan 100 mg tablet 100 mg PO QAM #90 tab 03/16/19 04/02/19 Rx acetaminophen [Tylenol] 650 mg PO Q6H PRN #1 cap 03/31/19 04/02/19 Rx Allergies Allergy/AdvReac Type Severity Reaction Status Date / Time methylprednisolone Allergy Severe HIVES, Verified 04/02/19 09:24 DIFFICULTY BREATHING Iodinated Contrast- Oral and Allergy Intermediate HIVES Verified 04/02/19 09:24 IV Dye tetanus toxoid, adsorbed Allergy Intermediate HIVES Verified 04/02/19 09:24 SEGUNDO Inhibitors Allergy Hives Verified 04/02/19 09:24 Gadolinium-Containing Allergy Hives Verified 04/02/19 09:24 Contrast Medi grass pollen Allergy Verified 04/02/19 09:24 Past Med/Surg History Medical History Hypertension Kidney stones Surgical History History of colonoscopy History of foot surgery CHILD History of tonsillectomy Hx of shoulder surgery Family History Grandmother Diabetes Social History Preferred Language: Croatian Communication Ability: Effective [employer]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 and A total of 10 systems reviewed and were otherwise negative Physical Exam Vital Signs Vital Signs - 24 hr 04/02/19 08:21 04/02/19 09:00 04/02/19 09:04 Temperature 36.8 C Temperature Source Oral Sepsis Recent Fever Within 48 Hours No Sepsis New/Unexplained Change in Mental Status No Sepsis Action Taken by Nursing No Action Required Pulse Rate 72 Pulse Rate [Apical] 72 Pulse Rhythm [Apical] Regular Pulse Strength [Apical] Normal Respiratory Rate 18 20 Respiratory Effort / Characteristics Non-Labored Non-Labored Spontaneous Respiratory Depth Normal Normal Respiratory Pattern Regular Regular Blood Pressure 176/93 H Blood Pressure [Right Arm] 172/96 H Blood Pressure Mean 120 Blood Pressure Mean [Right Arm] 121 Blood Pressure Position Sitting Blood Pressure Position [Right Arm] Sitting Pulse Oximetry 99 99 98 Oxygen Delivery Method Room Air Room Air Room Air 04/02/19 10:37 04/02/19 11:30 Temperature Temperature Source Sepsis Recent Fever Within 48 Hours Sepsis New/Unexplained Change in Mental Status Sepsis Action Taken by Nursing Pulse Rate Pulse Rate [Apical] 65 67 Pulse Rhythm [Apical] Pulse Strength [Apical] Respiratory Rate 16 18 Respiratory Effort / Characteristics Non-Labored Respiratory Depth Normal Normal Respiratory Pattern Blood Pressure Blood Pressure [Right Arm] 156/83 H 149/89 H Blood Pressure Mean Blood Pressure Mean [Right Arm] 107 109 Blood Pressure Position Blood Pressure Position [Right Arm] Pulse Oximetry 97 97 Oxygen Delivery Method Vital signs reviewed. General: Well-appearing male, in no significant distress. HEENT: No scleral icterus, PERRLA, neck supple. Atraumatic. Pale conjunctiva. Cardiovascular: Regular rate and rhythm, no extra sounds. Pulmonary: Clear to auscultation bilaterally, normal work of breathing. Abdomen: Soft, tender along the left mid abdominal, nondistended, positive bowel sounds. Musculoskeletal: Atraumatic, no peripheral edema. Positive CVA tenderness Neurologic: Patient awake alert and oriented x 3 Skin: Warm, dry, no rash Course 0852: The patient was evaluated in room B10. A complete history and physical exam was performed. 0904: I discussed the patient's case with [facility]. He recommended CT scan with IV contrast if his kidney function permits. 0934: The patient is getting benadryl and decadron. 0956: I discussed the patient's case with Alden Paredes. She will evaluate the patient for further management. 1016: I checked on the patient and informed her urology is coming to evaluate him. 1107: I discussed the patient's case with Alden Paredes. She recommends to admit the patient and give antibiotics. 1117: Upon reevaluation, the patient is resting comfortably. I discussed laboratory and radiographic results with him. The patient verbalized agreement of the treatment plan. The patient will be evaluated for further management and care. 1140: I discussed the patients case with Dr. Monterroso, [facility] Hospitalist. She will evaluate the patient for further management. Consultations Consultation #1: I discussed the patient's case with [facility]. He recommended CT scan with IV contrast if his kidney function permits. Time: 09:04 Consultation #2: I discussed the patient's case with Alden Paredes. She will evaluate the patient for further management. Time: 09:56 Consultation #3: I discussed the patient's case with Sharron Roque, Urology. She recommends to admit the patient and give antibiotics. Time: 11:07 Additional Consultation(s): 1140:I discussed the patients case with Dr. Monterroso, [facility] Hospitalist. She will evaluate the patient for further management. Administered Medications Hydrochlorothiazide (Hctz) 12.5 mg PO QAM [facility] Stop: 05/03/19 08:59 Last Admin: 04/03/19 07:23 Dose: 12.5 mg Documented by: [id number] Sodium Chloride (Nss 1000ml) 1,000 mls @ 125 mls/hr IV .Q8H [facility] Stop: 05/02/19 14:59 Last Admin: 04/03/19 06:28 Dose: 125 mls/hr Documented by: [id number] Infusion: 04/03/19 06:28 Dose: 125 mls/hr Documented by: [id number] Admin: 04/02/19 22:33 Dose: 125 mls/hr Documented by: [id number] Infusion: 04/02/19 22:33 Dose: 125 mls/hr Documented by: [id number] Admin: 04/02/19 14:45 Dose: 125 mls/hr Documented by: [id number] Piperacillin Sod/Tazobactam (Sod 3.375 gm/ Dextrose) 115 mls @ 28.75 mls/hr IV Q8H [facility]DE; Protocol Stop: 04/07/19 17:59 Last Infusion: 04/03/19 06:27 Dose: 0 mls/hr Documented by: [id number] Admin: 04/03/19 01:50 Dose: 28.8 mls/hr Documented by: [id number] Infusion: 04/02/19 22:32 Dose: 0 mls/hr Documented by: [id number] Admin: 04/02/19 18:39 Dose: 28.8 mls/hr Documented by: [id number] Ketorolac Tromethamine (Toradol) 15 mg IV Q8 [facility] Stop: 04/04/19 06:01 Last Admin: 04/03/19 05:30 Dose: Not Given Documented by: [id number] Admin: 04/02/19 21:56 Dose: 15 mg Documented by: [id number] Losartan Potassium (Cozaar) 100 mg PO QAM [facility] Stop: 05/03/19 08:59 Last Admin: 04/03/19 07:24 Dose: 100 mg Documented by: [id number] Miscellaneous (Order Awaiting Action) 1 ea N/A QS [facility] Stop: 05/02/19 15:59 Last Admin: 04/03/19 07:09 Dose: Not Given Documented by: [id number] Admin: 04/03/19 00:33 Dose: Not Given Documented by: [id number] Admin: 04/02/19 15:53 Dose: Not Given Documented by: [id number] Montelukast Sodium (Singulair) 10 mg PO QPM [facility] Stop: 05/02/19 20:59 Last Admin: 04/02/19 21:56 Dose: 10 mg Documented by: [id number] Oxycodone/Acetaminophen (Percocet 5mg/325mg) 1 tab PO Q4H PRN PRN Reason: Pain Stop: 04/16/19 18:40 Last Admin: 04/02/19 19:52 Dose: 1 tab Documented by: [id number] Discontinued Medications Dexamethasone Sodium Phosphate (Decadron Pf) 10 mg IV NOW ONE Stop: 04/02/19 09:31 Last Admin: 04/02/19 09:38 Dose: Not Given Documented by: [id number] Diphenhydramine HCl (Benadryl) 50 mg IV NOW STA Stop: 04/02/19 09:30 Last Admin: 04/02/19 09:38 Dose: Not Given Documented by: [id number] Fentanyl Citrate (Fentanyl Citrate) 100 mcg IV Q15M PRN PRN Reason: Pain Stop: 04/16/19 08:55 Last Admin: 04/02/19 09:03 Dose: 100 mcg Documented by: [id number] Sodium Chloride (Nss 1000ml) 1,000 mls @ 999 mls/hr IV .Q1H1M ONE Stop: 04/02/19 11:20 Last Infusion: 04/02/19 11:36 Dose: 0 mls/hr Documented by: [id number] Admin: 04/02/19 10:36 Dose: 999 mls/hr Documented by: [id number] Piperacillin Sod/Tazobactam Sod (Zosyn) 4.5 gm in 120 mls @ 240 mls/hr IV NOW ONE Stop: 04/02/19 11:38 Last Infusion: 04/02/19 11:52 Dose: 0 mls/hr Documented by: [id number] Admin: 04/02/19 11:22 Dose: 240 mls/hr Documented by: [id number] Ondansetron HCl (Zofran) 4 mg IV NOW STA Stop: 04/02/19 08:57 Last Admin: 04/02/19 09:03 Dose: 4 mg Documented by: [id number] Medical Decision Making Differential Diagnosis Differential diagnosis: Etiologies such as biliary colic, cholecystitis, hepatitis, pancreatitis, cardiac disease, pancreatitis, gastritis, peptic ulcer disease, appendicitis, cystitis, diverticulitis, mesenteric ischemia, inflammatory bowel disease, ileus, bowel obstruction, testicular torsion, aortic pathology, shingles, as well as others were considered. Medical Records Attestation: I reviewed the patient's medical records. Home Medications Current Medication List: was personally reviewed by me Laboratory Data Attestation: I reviewed the patient's lab results. Result diagrams: 04/03/19 06:44 04/02/19 08:31 Lab Results 04/02/19 04/02/19 04/02/19 Range/Units 08:30 08:31 08:31 WBC 12.95 H (4.8-10.8) K/uL RBC 3.62 L (4.7-6.1) M/uL Hgb 11.5 L (14.0-18.0) g/dL Hct 33.4 L (42-52) % MCV 92.3 (80-100) fL MCH 31.8 (25-34) pg MCHC 34.4 (32-36) g/dL RDW Std Deviation 44.7 (36.4-46.3) fL RDW Coeff of Karen 13.1 (11.5-14.5) % Plt Count 240 (130-400) K/uL MPV 8.9 (7.4-10.4) fL Immature Gran % (Auto) 0.2 % Neut % (Auto) 78.6 % Lymph % (Auto) 11.8 % [place] % (Auto) 8.4 % Eos % (Auto) 0.9 % Baso % (Auto) 0.1 % Immature Gran # (Auto) 0.02 (0.00-0.02) K/uL Neut # (Auto) 10.18 H (1.4-6.5) K/uL Lymph # (Auto) 1.53 (1.2-3.4) K/uL [place] # (Auto) 1.09 H (0.11-0.59) K/uL Eos # (Auto) 0.12 (0-0.5) K/uL Baso # (Auto) 0.01 (0-0.2) K/uL Sodium 141 (136-145) mmol/L Potassium 3.6 (3.5-5.1) mmol/L Chloride 108 H (98-107) mmol/L Carbon Dioxide 28 (21-32) mmol/L Anion Gap 6.0 (3-11) BUN 12 (7-18) mg/dl Creatinine 1.06 (0.6-1.4) mg/dl Est Cr Clr Drug Dosing 82.6 ml/min Est GFR ( Amer) 88.0 Est GFR (Non-Af Amer) 75.9 BUN/Creatinine Ratio 11.0 (10-20) Glucose 102 H (70-99) mg/dl Calcium 8.8 (8.5-10.1) mg/dl Total Bilirubin 0.6 (0.2-1) mg/dl AST 13 L (15-37) U/L ALT 16 (12-78) U/L Alkaline Phosphatase 74 (45-117) U/L Total Protein 7.4 (6.4-8.2) gm/dl Albumin 3.6 (3.4-5.0) gm/dl Globulin 3.8 (2.5-4.0) gm/dl Albumin/Globulin Ratio 1.0 (0.9-2) Lipase 105 (73-393) U/L Urine Color Yellow Urine Appearance Clear (Clear) Urine pH 5.5 (4.5-7.5) Ur Specific Gordon 1.010 (1.000-1.030) Urine Protein Negative (Negative) Urine Glucose (UA) Negative (Negative) Urine Ketones Trace H (Negative) Urine Blood 3+ H (Negative) Urine Nitrite Negative (Negative) Urine Bilirubin Negative (Negative) Urine Urobilinogen Negative (Negative) Ur Leukocyte Esterase Negative (Negative) Urine RBC 10-30 H (0-4) /hpf Urine WBC 0-5 (0-5) /hpf Ur Epithelial Cells 0-5 (0-5) /lpf Calcium Oxalate Crystal Present A (None Prsent) Urine Bacteria Negative (Negative) Imaging Data Radiologist's Impression: Radiology results as stated below per my review and the radiologist's interpretation: CT OF THE ABDOMEN AND PELVIS WITHOUT CONTRAST CLINICAL HISTORY: ESWL, L renal hematoma, contrast allergy COMPARISON STUDY: CT of the abdomen and pelvis March 30, 2019. TECHNIQUE: Axial images of the abdomen and pelvis were obtained without IV contrast. Images were reviewed in the axial, sagittal, and coronal planes. Automated exposure control was utilized for the study. A dose lowering technique was utilized adhering to the principles of ALARA. FINDINGS: Within visualized portions of the lower lungs, note is made of a 5 mm subpleural right middle lobe nodule on image 15 of 491 and a 5 mm right lower lobe nodule on image 20. A small left pleural effusion with left lower lobe at electasis has slightly increased. The hyperdense left subcapsular hematoma has slightly decreased in size since CT of March 30, 2019. Hematoma measures approximately 8.3 x 4.4 cm. It previously measured 8.4 x 4.7 cm. Mass effect on the kidney is again noted. Perinephric hemorrhage has slightly decreased. Hemorrhage extending into the pelvis has slightly increased. This is extraperitoneal in location. Several small left renal calculi fragments measure up to 3 mm. Several fragment within the distal left ureter are now noted, largest of which is a 4 mm fragment at the ureterovesical vesicle junction. Mild left hydroureteronephrosis is noted. A 3 mm right renal calculus is noted. Evaluation of the remainder of the abdomen and pelvis is suboptimal on this unenhanced exam. The adrenal glands, spleen and kidneys are unremarkable. Water attenuation right hepatic lobe lesion favors a cyst but is suboptimally assessed on this study. No evidence for a bowel obstruction. No suspicious osseous lesions are noted. IMPRESSION: 1. Moderate size left subcapsular hematoma, slightly decreased in size since CT of March 30, 2019. Persistent mass effect on the left kidney. Interval decrease in perinephric hemorrhage with slight increase in pelvic extension of hemorrhage. 2. Multiple distal left renal calculi/fragments, including a 4 mm ureterovesical junction calculi. Mild left hydroureteronephrosis. 2. 3 mm right renal calculus. 4. A few low suspicion but indeterminate right lung nodules. A chest CT in 6 months to ensure stability is recommended. Electronically signed by: Oscar Oro M.D. 04/02/2019 10:07 AM Blood Pressure Blood Pressure Findings: Elevated blood pressure Blood Pressure Disposition: further management by hospitalist MDM Narrative This patient was evaluated and appeared to be in some discomfort. IV access was obtained and laboratory work was drawn. Patient was hydrated with normal saline solution. Initially an ultrasound of the retroperitoneum was ordered however after speaking to radiology, Dr. Black, CT with IV contrast was requested. Initially the patient stated he had hives after contrast but upon questioning from CT, stated he had a more significant reaction with throat swelling. A CT with no IV contrast was administered and reveals a similar left renal hematoma that may be improved from previous. Hemoglobin is stable. Urinalysis is negative for infection. There is a 4 mm distal ureteral stone. Case was discu ssed with urology, Yadi Roque PA-C. After speaking with Dr. Saunders, he has requested admission for IV antibiotics and further management given the ureteral stone and low-grade fevers at home. Patient was given Zosyn 4.5 g IV and discussed with the hospitalist, Dr. Goss. She has agreed to evaluate the patient for further management. The patient was informed of the findings and plan and agrees. Impression & Plan Hematoma of left kidney, Fever, Ureteral stone Discharge Plan Visit Data *Final* Discharge Date/Time: 04/02/19 14:03 Chief Complaint: Abdominal Pain Stated Complaint: ABDOMINAL PAIN,FEVER ED Provider: Chante Strickland Discharge Problem: Hematoma of left kidney, Fever, Ureteral stone Patient Disposition: Admitted As Inpatient Discharge Instructions Interventions: ED Discharge Assessment Last Done: 04/02/19 14:03 The scribe's documentation has been prepared under my direction and personally reviewed by me in its entirety. I confirm that the note above accurately refl ects all work, treatment, procedures, and medical decision making performed by me.
[2019-04-02] MEDS ORDERED: ACETAMINOPHEN 325 MG TAB PO PRN (14:27)
[2019-04-02] MEDS ORDERED: NON-FORMULARY MEDICATION (Acetaminophen [Tylenol] 650 MG) PO PRN (14:27)
[2019-04-02] MEDS ORDERED: ONDANSETRON INJ 2 MG/ML 2 ML VIAL IV PRN (14:27)
[2019-04-02] MEDS: SODIUM CHLORIDE 0.9% 1000ML 1,000 ML IV SCH ×2 (14:45→22:33)
--- NOTE | 2019-04-02 14:50 | Urology Consultation ---
Date of Consultation April 02, 2019 Assessment & Plan (1) Hematoma of left kidney: Stable left renal hematoma s/p ESWL, low grade fevers, passing stone fragments. Recommend 24 hour observation. Patient to remain NPO. Should patient develop a fever >101.5F please contact our service immediately as he would require urgent stone intervention. Continue IVF, antibiotics. Will continue to follow. (2) Ureteral stone: History of Present Illness Attending Physician: Rosalinad Galindo MD History of Present Illness 58 YO male POD #3 s/p ESWL with resulting renal hematoma, low-grade fevers, and ureteral stone fragments. Patient called our answering service this AM and reported fever, pain, sweats, feeling unwell. He was advised to report to the ER. His CT scan upon arrival is reviewed, demonstrating stable left renal hematoma, multiple distal left ureteral stone fragments, mild left hydro. Hgb and WBC stable. Upon assessment this afternoon he reports feeling well. Hungry. Intermittent pain relieved with pain medication. Has remained afebrile. Voiding spontaneously. Intermittent nausea without vomiting. Allergies Allergy/AdvReac Type Severity Reaction Status Date / Time methylprednisolone Allergy Severe HIVES, Verified 04/02/19 09:24 DIFFICULTY BREATHING Iodinated Contrast- Oral and Allergy Intermediate HIVES Verified 04/02/19 09:24 IV Dye tetanus toxoid, adsorbed Allergy Intermediate HIVES Verified 04/02/19 09:24 SEGUNDO Inhibitors Allergy Hives Verified 04/02/19 09:24 Gadolinium-Containing Allergy Hives Verified 04/02/19 09:24 Contrast Medi grass pollen Allergy Verified 04/02/19 09:24 Home Medications Home Medications Medication Instructions Recorded Confirmed Type montelukast 10 mg tablet 10 mg PO QPM #90 tab 02/12/19 04/02/19 Rx azelastine 137 mcg (0.1 %) nasal 2 sprays INTNAS BID #30 ml 03/16/19 04/02/19 Rx spray aerosol hydrochlorothiazide 12.5 mg tablet 12.5 mg PO QAM #90 tab 03/16/19 04/02/19 Rx losartan 100 mg tablet 100 mg PO QAM #90 tab 03/16/19 04/02/19 Rx acetaminophen [Tylenol] 650 mg PO Q6H PRN #1 cap 03/31/19 04/02/19 Rx Patient History Medical History Hypertension Kidney stones Surgical History History of colonoscopy History of foot surgery CHILD History of tonsillectomy Hx of shoulder surgery Family History Grandmother Diabetes Social History Preferred Language: Telugu Communication Ability: Effective 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 Beliefs That Will Affect Care: None Current Living Situation: Spouse Other Information That Helps Us Care for You: No Feels Safe at Home: Yes Safety Concerns: Feels Safe At This Time Smoking Status: Never smoker Do You Dip or Chew Tobacco: No ; Second Hand Exposure: No ; Tobacco Cessation Education Requested by Patient: No Hx Alcohol Use: No Hx Substance Use: No Review of Systems Constitutional: no fever and no chills Eyes: no worsening vision Ear, Nose, Mouth, Throat: no hearing loss Respiratory: no dyspnea Cardiovascular: no chest pain Gastrointestinal: + abdominal pain and + nausea; no vomiting Genitourinary: + hematuria and + flank pain; no difficulty urinating Musculoskeletal: no back pain Neurologic: no confusion Psychiatric: no problem reported Endocrine: + fatigue Physical Exam Constitutional: WD/WN, vitals as above ENMT: Ears: no hearing impairment Neck: normal visual inspection Respiratory: normal respiratory effort; does not use accessory muscles Cardiovascular: Vessels: no JVD Gastrointestinal (Abdomen): Percussion/Palpation: abdomen soft; abdomen nontender Skin: no rashes, warm and dry Psychiatric: A+Ox3, euthymic affect Genitourinary: + CVA tenderness and bladder normal to palpation Results & Data Vital Signs (Past 12 Hours) Vital Signs Temp Pulse Pulse Resp BP BP Pulse Ox 04/02/19 14:00 71 16 135/89 99 04/02/19 11:30 67 18 149/89 H 97 04/02/19 10:37 65 16 156/83 H 97 04/02/19 09:04 72 20 172/96 H 98 04/02/19 09:00 99 04/02/19 08:21 36.8 C 72 18 176/93 H 99
--- NOTE | 2019-04-02 18:29 | History & Physical Report ---
Date of Service April 02, 2019 Assessment & Plan (1) Hematoma of left kidney: Stable left renal hematoma s/p ESWL, low grade fevers, passing stone fragments. continue 24 hour observation per urology. Patient to remain NPO. Should patient develop a fever >101.5F please contact our service immediately as he would require urgent stone intervention. Continue IVF NS at 125 cc/hr. Continue Zosyn. Follow up Blood cx and urine cx Pain management with Ketorolac IV and Percocet. (2) Ureteral stone: see the above management Present on Admission?: Yes (3) Fever: Tylenol for fever, call urology if fever >101.5 for immediate decompression Present on Admission?: Yes (4) Benign essential hypertension: continue home medication-Losartan and HCTZ Present on Admission?: Yes (5) Hyperlipidemia: Pt is now NPO , but once when on diet should be at low fat diet. Check fasting Lipids in AM. Present on Admission?: Yes History of Present Illness Primary Care Provider: Jesse Galeas DO 58 YO male presents to the ER after he had ESWL 3 days ago and reports low grade fever, chills, abdominal discomfort and pain located at the left flank area since the procedure. Patient reports his p.o. intake is decreased and he is pain in the left flank area is 3 of 10 at rest and 6 of 10 if he walks or with activity. Patient called our answering service this AM and reported fever, pain, sweats, feeling unwell. He was advised to report to the ER. His CT scan upon arrival showed : 1. Moderate size left subcapsular hematoma, slightly decreased in size since CT of March 30, 2019. Persistent mass effect on the left kidney. Interval decrease in perinephric hemorrhage with slight increase in pelvic extension of hemorrhage. 2. Multiple distal left renal calculi/fragments, including a 4 mm ureterovesical junction calculi. Mild left hydroureteronephrosis. 3.3 mm right renal calculus. 4. A few low suspicion but indeterminate right lung nodules. A chest CT in 6 months to ensure stability is recommended. -Pt is seen by urology who recommended conservative treatment and reviewed his CTthat demonstrated stable left renal hematoma, multiple distal ureteral stone fragments and left hydronephrosis. Hgb He is stable.WBC elevated to 12.95 with a left shift. -Stable left renal hematoma s/p ESWL, low grade fevers, passing stone fragments. -Dr. Saunders recommended 24 hour observation. Patient to remain NPO. -Should patient develop a fever >101.5F please contact our service immediately as he would require urgent stone intervention. -Continue IVF NS at 100 cc/hr -Started Zosyn in the ER, continue on the floor. -Pain management with Percocet/Ketorolac - Allergies Allergy/AdvReac Type Severity Reaction Status Date / Time methylprednisolone Allergy Severe HIVES, Verified 04/02/19 09:24 DIFFICULTY BREATHING Iodinated Contrast- Oral and Allergy Intermediate HIVES Verified 04/02/19 09:24 IV Dye tetanus toxoid, adsorbed Allergy Intermediate HIVES Verified 04/02/19 09:24 SEGUNDO Inhibitors Allergy Hives Verified 04/02/19 09:24 Gadolinium-Containing Allergy Hives Verified 04/02/19 09:24 Contrast Medi grass pollen Allergy Verified 04/02/19 09:24 Home Medications Home Medications Medication Instructions Recorded Confirmed Type montelukast 10 mg tablet 10 mg PO QPM #90 tab 02/12/19 04/02/19 Rx azelastine 137 mcg (0.1 %) nasal 2 sprays INTNAS BID #30 ml 03/16/19 04/02/19 Rx spray aerosol hydrochlorothiazide 12.5 mg tablet 12.5 mg PO QAM #90 tab 03/16/19 04/02/19 Rx losartan 100 mg tablet 100 mg PO QAM #90 tab 03/16/19 04/02/19 Rx acetaminophen [Tylenol] 650 mg PO Q6H PRN #1 cap 03/31/19 04/02/19 Rx Past Med/Surg History Medical History Hypertension Kidney stones Surgical History History of colonoscopy History of foot surgery CHILD History of tonsillectomy Hx of shoulder surgery Family History Grandmother Diabetes Social History Preferred Language: Andorran Communication Ability: Effective [employer] Required: No Beliefs That Will Affect Care: None Current Living Situation: Spouse Other Information That Helps Us Care for You: No Feels Safe at Home: Yes Safety Concerns: Feels Safe At This Time Smoking Status: Never smoker Do You Dip or Chew Tobacco: No ; Second Hand Exposure: No ; Tobacco Cessation Education Requested by Patient: No Hx Alcohol Use: No Hx Substance Use: No Review of Systems Review of Systems: All systems reviewed & are unremarkable except as noted in HPI & below Gastrointestinal: + abdominal pain and + nausea; no vomiting Genitourinary: + hematuria and + flank pain; no difficulty urinating Endocrine: + fatigue Physical Exam Constitutional: WD/WN, vitals as above well developed, well nourished, + acute distress and average body habitus . Patient reports left-sided flank pain for 3 days Eyes: PERRL, conjunctivae normal, anicteric sclerae ENMT: external ear and nose normal, oropharynx normal Neck: trachea midline, no thyromegaly normal visual inspection Respiratory: normal respiratory effort, lungs clear to auscultation Cardiovascular: RRR, no murmur, no edema Chest (Breasts): normal inspection/palpation of breasts Gastrointestinal (Abdomen): normal bowel sounds, soft, nontender, no hepatosplenomegaly left CVA tenderness and dull pain that is shooting to his left groin Musculoskeletal: no cyanosis or clubbing, extremities motor strength 5/5 Skin: no rashes, warm and dry Neurologic: patellar DTR's 2+ bilat, sensation intact Psychiatric: A+Ox3, euthymic affect Genitourinary: + CVA tenderness left CVA tenderness Results & Data Vital Signs (Past 12 Hours) Vital Signs Temp Pulse Pulse Pulse Resp BP BP 04/02/19 14:20 37 C 73 18 161/75 H 04/02/19 14:00 71 16 135/89 04/02/19 11:30 67 18 149/89 H 04/02/19 10:37 65 16 156/83 H 04/02/19 09:04 72 20 172/96 H 04/02/19 09:00 04/02/19 08:21 36.8 C 72 18 176/93 H Pulse Ox 04/02/19 14:20 98 04/02/19 14:00 99 04/02/19 11:30 97 04/02/19 10:37 97 04/02/19 09:04 98 04/02/19 09:00 99 04/02/19 08:21 99 Code Status & VTE Plan Code Status Full Code VTE Prophylaxis Plan VTE Prophylaxis will be ordered: No Reason for no VTE drug order: Contraindicated (Pt has subcapsular left kidney hematoma. For DVT ppx use chemo hose bilaterally.) PG Care Time/CCT Total # of Minutes Spent Total Time Spent with Patient: Total time spent is greater than 50% in coordination of care (as documented) at patient's floor/unit and/or counseling patient:
[2019-04-02] MEDS: PIPERACILLIN/TAZOBACTAM 3.375 GM in DEXTROSE 5% 100 ML IV SCH (18:39)
[2019-04-02] MEDS ORDERED: OXYCODONE/ACETAMINOPHEN 5mg/325mg TAB PO PRN (18:41)
[2019-04-02] MEDS ORDERED: MONTELUKAST SODIUM 10 MG TABLET PO SCH (21:00)
[2019-04-02] MEDS: KETOROLAC TROMETHAMINE 15 MG/ML VIAL IV SCH (21:56)
[2019-04-03] MEDS: PIPERACILLIN/TAZOBACTAM 3.375 GM in DEXTROSE 5% 100 ML IV SCH ×2 (01:50→09:48)
[2019-04-03] MEDS: KETOROLAC TROMETHAMINE 15 MG/ML VIAL IV SCH (05:30)
[2019-04-03] MEDS: SODIUM CHLORIDE 0.9% 1000ML 1,000 ML IV SCH (06:28)
[2019-04-03 07:14] LABS: Basophils # (auto) 0.01 K/uL (0-0.2); Basophils % (auto) 0.1 %; Eosinophils # (auto) 0.17 K/uL (0-0.5); Eosinophils % (auto) 2.3 %; Hematocrit (blood only) 28.5 % (42-52); Hemoglobin 9.9 g/dL (14.0-18.0); Immature Granulocytes # (auto) 0.01 K/uL (0.00-0.02); Immature Granulocytes % (auto) 0.1 %; Lymphocytes # (auto) 1.79 K/uL (1.2-3.4); Lymphocytes % (auto) 24.4 %; Mean Corpuscular Hgb Conc 34.7 g/dL (32-36); Mean Corpuscular Volume 90.8 fL (80-100); Monocytes # (auto) 0.68 K/uL (0.11-0.59); Monocytes % (auto) 9.3 %; Neutrophils # (auto) 4.67 K/uL (1.4-6.5); Neutrophils % (auto) 63.8 %; Platelet Count 202 K/uL (130-400); RDW Coefficient of Variation 13.3 % (11.5-14.5); Red Blood Count 3.14 M/uL (4.7-6.1); White Blood Count 7.33 K/uL (4.8-10.8)
[2019-04-03 07:24] LABS: Partial Thromboplastin Ratio 0.9; Partial Thromboplastin Time 25.4 Seconds (21.0-31.0); Prothrombin Time 10.3 Seconds (9.0-12.0)
[2019-04-03 07:34] VITALS: BP 120/77; TEMP 98.1; O2SAT 95
[2019-04-03 07:47] LABS: Albumin Level 2.8 gm/dl (3.4-5.0); BUN Creatinine Ratio 13.9 (10-20); Calcium 7.9 mg/dl (8.5-10.1); Creatinine Clr Calc Pharmacy 95.1 ml/min; Est GFR (African American) 104.4; Est GFR (Non-African American) 90.1; Potassium 4.3 mmol/L (3.5-5.1)
[2019-04-03 07:51] LABS: Albumin Globulin Ratio 0.9 (0.9-2); Globulin 3.3 gm/dl (2.5-4.0); Total Protein 6.1 gm/dl (6.4-8.2)
[2019-04-03] MEDS ORDERED: hydroCHLOROthiazide 25 MG TAB PO SCH (09:00)
[2019-04-03] MEDS ORDERED: LOSARTAN POTASSIUM 50 MG TAB PO SCH (09:00)
[2019-04-03 11:55] VITALS: PULSE 71
--- NOTE | 2019-04-03 14:17 | Discharge Summary ---
Date of Service April 03, 2019 Admission HPI Per Admitting Provider 58 YO male presents to the ER after he had ESWL 3 days ago and reports low grade fever, chills, abdominal discomfort and pain located at the left flank area since the procedure. Patient reports his p.o. intake is decreased and he is pain in the left flank area is 3 of 10 at rest and 6 of 10 if he walks or with activity. Patient called our answering service this AM and reported fever, pain, sweats, feeling unwell. He was advised to report to the ER. His CT scan upon arrival showed : 1. Moderate size left subcapsular hematoma, slightly decreased in size since CT of March 30, 2019. Persistent mass effect on the left kidney. Interval decrease in perinephric hemorrhage with slight increase in pelvic extension of hemorrhage. 2. Multiple distal left renal calculi/fragments, including a 4 mm ureterovesical junction calculi. Mild left hydroureteronephrosis. 3.3 mm right renal calculus. 4. A few low suspicion but indeterminate right lung nodules. A chest CT in 6 months to ensure stability is recommended. -Pt is seen by urology who recommended conservative treatment and reviewed his CTthat demonstrated stable left renal hematoma, multiple distal ureteral stone fragments and left hydronephrosis. Hgb He is stable.WBC elevated to 12.95 with a left shift. -Stable left renal hematoma s/p ESWL, low grade fevers, passing stone fragments. -Dr. Saunders recommended 24 hour observation. Patient to remain NPO. -Should patient develop a fever >101.5F please contact our service immediately as he would require urgent stone intervention. -Continue IVF NS at 100 cc/hr -Started Zosyn in the ER, continue on the floor. -Pain management with Percocet/Ketorolac - Principal Diagnosis Left perinephric hematoma Discharge Exam Constitutional WD/WN, vitals as above well developed, well nourished, + acute distress and average body habitus Eyes PERRL, conjunctivae normal, anicteric sclerae ENMT external ear and nose normal, oropharynx normal Neck trachea midline, no thyromegaly normal visual inspection Respiratory normal respiratory effort, lungs clear to auscultation Cardiovascular RRR, no murmur, no edema Chest (Breasts) normal inspection/palpation of breasts Gastrointestinal (Abdomen) normal bowel sounds, soft, nontender, no hepatosplenomegaly Musculoskeletal no cyanosis or clubbing, extremities motor strength 5/5 Skin no rashes, warm and dry Neurologic patellar DTR's 2+ bilat, sensation intact Psychiatric A+Ox3, euthymic affect Genitourinary + CVA tenderness Discharge Data Allergies Allergy/AdvReac Type Severity Reaction Status Date / Time methylprednisolone Allergy Severe HIVES, Verified 04/02/19 09:24 DIFFICULTY BREATHING Iodinated Contrast- Oral and Allergy Intermediate HIVES Verified 04/02/19 09:24 IV Dye tetanus toxoid, adsorbed Allergy Intermediate HIVES Verified 04/02/19 09:24 SEGUNDO Inhibitors Allergy Hives Verified 04/02/19 09:24 Gadolinium-Containing Allergy Hives Verified 04/02/19 09:24 Contrast Medi grass pollen Allergy Verified 04/02/19 09:24 Consultations 04/02/19 10:29 Consult Urology Stat 04/02/19 11:14 ED Decision to Admit Stat Ordered Studies 04/02/19 09:36 CT abd pelvis wo con Stat Hospital Course (1) Hematoma of left kidney: Stable left renal hematoma s/p ESWL, low grade fevers, passing stone fragments. - Observed for 24 hours without any fevers. - Discussed with Dr. Seamus Saunders - Discharged on Bactrim x 5 days. Will follow up with urology. - Minimal pain on the left flank. On discharge did not need any PRN pain meds. (2) Ureteral stone: see the above management (3) Benign essential hypertension: Continued home medication-Losartan and HCTZ (4) Hyperlipidemia: Continue statin Total Time Total Time Spent Total Time Spent (In Minutes): 45 Total Time Includes: Examination of the Patient and Communication With Other Providers Discharge Plan Discharge Items Patient Disposition: Home - Self-Care Reason For Visit: ABDOMINAL PAIN,LEFT KIDNEY SUBCAPSULAR HEMATOMA Discharge Diagnosis: LEFT KIDNEY SUBCAPSULAR HEMATOMA Discharge Goals: Diagnostic testing and Improve nutritional status Activity: Resume your previous activity Non-emergency contact: Primary Care Provider and Urologist Call non-emergency contact if: your pain is not controlled and your temperature is above 101 Follow-up/Referrals: Seamus Saunders MD [Physician] - (Please follow up at your normal scheduled appt.) Jesse Galeas DO [Primary Care Provider] - Diet: Regular Addtl Provider Instructions: You were admitted for observation after concern that there was an infection in the kidney where the stone was broken up. We are sending you out on antibiotics, so please take these for the next [address] Seamus Saunders tells you to stop. Take your first dose of Bactrim tonight before bed, then twice a day after that. Please call their office if you have any further fevers at home > 101 degrees. Prescriptions: New sulfamethoxazole-trimethoprim [Bactrim DS] 800-160 mg tablet 1 tab PO BID 5 Days Qty: 11 RF: 0 Continued azelastine 137 mcg (0.1 %) aerosol,spray 2 sprays INTNAS BID Qty: 30 RF: 3 hydrochlorothiazide 12.5 mg tablet 12.5 mg PO QAM Qty: 90 RF: 3 losartan 100 mg tablet 100 mg PO QAM Qty: 90 RF: 3 montelukast 10 mg tablet 10 mg PO QPM Qty: 90 RF: 3 acetaminophen [Tylenol] 325 mg capsule 650 mg PO Q6H PRN (Reason: fever or pain) Qty: 1 RF: 0 Stand-Alone Forms: Call Back Authorization, [facility] Discharge Orders: Discharge Order (Routine); Ordered 04/03/19 Ordered By: Emre Saunders Admission Data Admit Date/Time: 04/02/19 13:40 Attending Provider: Emre Saunders Admit Provider: Rosalinda Galindo Primary Care Provider: Jesse Galeas Other Providers: Seamus Saunders I. ; Emre Saunders Service: Medical Other Interventions: Discharge Summary Assessment (RN) Last Done: 04/03/19 11:54 DC Date/Time DO NOT enter until pt leaves facility: 04/03/19 12:10
== END 2019-04-03 12:10 | disposition home or self-care (01) | DRG 920 ==
LOC: ED 08:18 → 2N 13:40 → SUATTDRO 13:40 → 2N 14:03